=== PATIENT | male | born 1985 | race Caucasian/White ===

== ENCOUNTER 2016-11-23 20:40 | Emergency (ER) | payer OTHER ==
[~2016-11-23] VITALS: Ht 195.6 cm; Wt 99.8 kg
--- NOTE | 2016-11-23 23:08 | ED SKIN/ALLERGY COMPLAINT ---
History of Present Illness General Chief Complaint: Laceration Procedure Stated Complaint: CUT HAND ON GLASS Source: patient Exam Limitations: no limitations Vital Signs & Intake/Output Vital Signs & Intake/Output Vital Signs Date Time Temp Pulse Resp B/P B/P Pulse O2 O2 Flow FiO2 Mean Ox Delivery Rate 11/23 2318 97.5 106 18 126/66 98 Room Air 11/23 2109 98.7 100 15 108/71 100 Room Air ED Intake and Output 11/24 0000 11/23 1200 Intake Total Output Total Balance Patient 220 lb Weight Weight Reported by Patient Measurement Method Allergies Coded Allergies: bee venom protein (honey bee) (Severe, ANAPHYLAXIS 11/23/16) Triage Note: PT TO ED FOR LAC TO TOP OF R HAND FROM WASHING DISHES, BLEEDING CONTROLLED ON ARRIVAL, UNKNOWN LAST TETANUS, NON ADHERENT DRESSING PLACED IN TRIAGE. Triage Nurses Notes Reviewed? yes HPI: This patient is a 31-year-old male who presented to the emergency department today for evaluation of a laceration to the base of his right index finger. The patient reported that he was washing a glass and it, "exploded in my hand." He reported that the bleeding seems to be lessening. He denied any pain to the area. He denied any numbness or tingling in his extremities. He denied any decreased range of motion of his finger. The patient is unsure of his last tetanus immunization. (BELLO FLOWERS PA-C) Past History Travel History Traveled to [place] past 21 day No Medical History Any Pertinent Medical History? see below for history Neurological: NONE EENT: NONE Cardiovascular: NONE Respiratory: NONE Gastrointestinal: irritable bowel syndrome Hepatic: NONE Renal: NONE Musculoskeletal: NONE Psychiatric: NONE Endocrine: NONE Blood Disorders: NONE Cancer(s): NONE Surgical History Surgical History: non-contributory Psychosocial History What is your primary language [place] Tobacco Use: Never used ETOH Use: occasional use Illicit Drug Use: denies illicit drug use Family History Hx Contributory? No (BELLO FLOWERS PA-C) Review of Systems Review of Systems Constitutional: Reports: no symptoms. EENTM: Reports: no symptoms. Respiratory: Reports: no symptoms. Cardiovascular: Reports: no symptoms. GI: Reports: no symptoms. Musculoskeletal: Reports: no symptoms. Skin: Reports: see HPI. Neurological/Psychological: Reports: no symptoms. All Other Systems: Reviewed and Negative (BELLO FLOWERS PA-C) Physical Exam Physical Exam General Appearance: well developed/nourished, no apparent distress, alert, awake Comments: Well-developed well-nourished person in no acute distress HEENT: Head normocephalic, moist mucous membranes Neck: Supple, no lymphadenopathy Back: Normal gait Respiratory: No respiratory distress. Speaking in full sentences Extremities: No edema, full range of motion Neuro: Alert and oriented x3 Psych: Mood affect normal, normal memory normal judgment. Skin: Warm and dry, no rash on exposed skin. Approximately 4 cm in length, subcutaneous skin flap to the dorsal aspect of the base of the right second digit with mild amount of active bleeding, no foreign body in the wound site, no stranding erythema or edema, and mild tenderness to palpation. No tendon injury. Full range of motion at the digits on the right hand. (BELLO FLOWERS PA-C) Progress Differential Diagnosis: abscess/cellulitis, SKIN LACERATION, SKIN AVULSION, SKIN TEAR, TENDON INJURY Plan of Care: Current Medications Sig/Bebeto Start time Last Medication Dose Stop Time Status Admin Tetanus/Diphtheria 0.5 ML ONCE ONE 11/23 2314 UNVr Toxoids Adsorbed 11/24 2315 (Decavac) Departure Departure Disposition: HOME OR SELF CARE Condition: Stable Clinical Impression Primary Impression: Laceration Referrals: UNKNOWN (PCP/Family) Additional Instructions: Please keep the wound site clean and dry. Use the splint provided to you to prevent bending of your finger which could pull the stitches out. You may apply bacitracin to the wound site once or twice a day over the next 3 days. After that time, please let the wound remained dry without the bacitracin. Return in 5-7 days for a wound check and suture removal. Return sooner for any worsening symptoms, excessive pain, pus drainage from the wound site, spreading of redness around the wound site, fevers, chills, or for any other concerns. Departure Forms: Customer Survey General Discharge Information (BELLO FLOWERS PA-C) PA/ENRICHMENT ASSISTANT Co-Sign Statement Statement: ED Attending supervision documentation- [] I saw and evaluated the patient. I have also reviewed all the pertinent lab results and diagnostic results. I agree with the findings and the plan of care as documented in the PA's/ENRICHMENT ASSISTANT's documentation. [X] I have reviewed the ED Record and agree with the PA's/ENRICHMENT ASSISTANT's documentation. [] Additions or exceptions (if any) to the PAs/ENRICHMENT ASSISTANT's note and plan are summarized below: [] (DOM VOSS,SAGAR) Procedures Laceration/Wound Repair Laceration/Wound Repair: Wound Location: upper extremity (RIGHT INDEX FINGER) Wound's Depth, Shape: flap, subcutaneous Wound Length (cm): 4 Wound Explored: irrigated extensively Irrigated w/ Saline (ccs): 500 Betadine Prep? Yes Anesthesia: lidocaine w/ epi Volume Anesthetic (ccs): 4 Wound Repaired With: sutures Suture Size/Type: 4:0 Number of Sutures: 13 Layer Closure? No Sterile Dressing Applied: Yes Splint Applied? Yes By Who? by me Type of Splint Applied: FINGER SPLINT Sling Applied? No Tetanus Status: not up to date Progress: Patient tolerated the procedure well. (KRISTIE MONTERO,BELLO)
[2016-11-23 23:18] VITALS: BP 126/66
== END 2016-11-23 23:30 ==
LOC: ERH 20:40
DX: S61.210A Laceration without foreign body of right index finger without damage to nail, initial encounter (principal); W25.XXXA Contact with sharp glass, initial encounter; Y93.G1 Activity, food preparation and clean up; Y92.9 Unspecified place or not applicable
CPT/HCPCS: 90471; 90714